=== PATIENT | male | born 1975 | race Caucasian/White ===

== ENCOUNTER 2019-06-28 23:55 | Emergency (ER) | payer OTHER ==
[~2019-06-28] VITALS: Ht 172.7 cm; Wt 81.6 kg
== END 2019-06-29 01:53 | disposition left against medical advice (07) ==
LOC: ED 23:55
DX: S01.81XA Laceration without foreign body of other part of head, initial encounter (principal); W19.XXXA Unspecified fall, initial encounter; Y93.89 Activity, other specified; Y92.89 Other specified places as the place of occurrence of the external cause; Y99.8 Other external cause status